=== PATIENT | male | born 1975 | race Caucasian/White ===

== ENCOUNTER 2021-01-25 04:11 | Outpatient (CLI) | payer BC, SELFPAY ==
[2021-01-25 12:43] LABS: Anion Gap 8.1 mmol/L (3-11); BUN 17 mg/dL (7-18); CO2 27.9 mmol/L (21.0-32.0); CREATININE 1.1 mg/dL (0.70-1.30); Calcium 9.7 mg/dL (8.5-10.1); Calculated LDL 176 mg/dL (<100); Chloride 105 mmol/L (98-107); Cholesterol 237 mg/dL (<200); Glucose 109 mg/dL (74-106); HDL Cholesterol 38 mg/dL (40-60); Potassium 4.4 mmol/L (3.5-5.1); Sodium 141 mmol/L (136-145); Triglyceride 116 mg/dL (<150)
[2021-01-25 12:52] LABS: Uric Acid 8.9 mg/dL (3.5-7.2)
== END 2021-01-25 04:12 | disposition home or self-care (01) ==
LOC: LOS 04:11
PROVIDERS: PCP Internal Medicine; Visit Provider Internal Medicine
DX: E78.00 Pure hypercholesterolemia, unspecified (principal); M10.9 Gout, unspecified
CPT/HCPCS: 36415; 80048; 80061; 84550

== ENCOUNTER 2021-04-01 02:07 | Outpatient (CLI) | payer BC, SELFPAY ==
[2021-04-01 12:53] LABS: Uric Acid 8.3 mg/dL (3.5-7.2)
== END 2021-04-01 02:08 | disposition home or self-care (01) ==
PROVIDERS: PCP Internal Medicine; Visit Provider Internal Medicine
DX: M10.9 Gout, unspecified (principal)
CPT/HCPCS: 36415; 84550

== ENCOUNTER 2022-01-25 04:06 | Outpatient (CLI) | payer BC, SELFPAY ==
[2022-01-25 15:51] LABS: Anion Gap 13.4 mmol/L (3-11); BUN 13 mg/dL (7-18); CO2 23.6 mmol/L (21.0-32.0); CREATININE 1.3 mg/dL (0.70-1.30); Calcium 9.4 mg/dL (8.5-10.1); Chloride 102 mmol/L (98-107); Estimated GFR 59.97 (mL/min/1.73m2); Glucose 102 mg/dL (74-106); Potassium 3.8 mmol/L (3.5-5.1); Sodium 139 mmol/L (136-145); Uric Acid 4.1 mg/dL (3.5-7.2)
== END 2022-01-25 04:07 | disposition home or self-care (01) ==
LOC: LBO 04:06
PROVIDERS: PCP Internal Medicine; Visit Provider Internal Medicine
DX: M1A.09X0 Idiopathic chronic gout, multiple sites, without tophus (tophi) (principal); E78.00 Pure hypercholesterolemia, unspecified
CPT/HCPCS: 36415; 80048; 84550

== ENCOUNTER 2023-02-20 03:30 | Outpatient (CLI) | payer BC, SELFPAY ==
[2023-02-20 12:39] LABS: Hemoglobin A1C 5.1 % (<5.7)
[2023-02-20 12:43] LABS: Anion Gap 9.7 mmol/L (3-11); BUN 13 mg/dL (7-18); CO2 29.3 mmol/L (21.0-32.0); CREATININE 1.2 mg/dL (0.70-1.30); Calcium 9.2 mg/dL (8.5-10.1); Calculated LDL 149 mg/dL (<100); Chloride 107 mmol/L (98-107); Cholesterol 226 mg/dL (<200); Estimated GFR 75.53 (mL/min/1.73m2); Glucose 104 mg/dL (74-106); HDL Cholesterol 55 mg/dL (40-60); Sodium 146 mmol/L (136-145); Triglyceride 112 mg/dL (<150)
[2023-02-20 12:53] LABS: Uric Acid 4.1 mg/dL (3.5-7.2)
== END 2023-02-20 03:31 | disposition home or self-care (01) ==
LOC: LOS 03:30
PROVIDERS: PCP Nurse Practitioner Adult Health; Visit Provider Nurse Practitioner Adult Health
DX: E78.00 Pure hypercholesterolemia, unspecified (principal); R73.01 Impaired fasting glucose; M10.9 Gout, unspecified; F41.8 Other specified anxiety disorders; L65.9 Nonscarring hair loss, unspecified
CPT/HCPCS: 36415; 80048; 80061; 83036; 84550